=== PATIENT | female | born 1965 | race Two or more races ===

== ENCOUNTER 2018-05-03 19:55 | Emergency (ER) | payer OTHER ==
[~2018-05-03] VITALS: Ht 170.2 cm; Wt 78.0 kg
[~2018-05-03 19:55] MED LIST: CINRYZE500 UNIT; DEXILANT60 MG; METOPROLOL SUCC25 MG; SYNTHROID175 MCG
[2018-05-03] MEDS ORDERED: SKELAGESIC (20:15)
[2018-05-03] MEDS ORDERED: FLOVENT DISKUS50 MCG (20:15)
== END 2018-05-03 23:01 | disposition home or self-care (01) ==
LOC: ER 19:55
DX: H60.8X1 Other otitis externa, right ear (principal); H60.11 Cellulitis of right external ear

== ENCOUNTER 2020-07-01 06:31 | Emergency (ER) | payer OTHER ==
[~2020-07-01] VITALS: Ht 170.2 cm; Wt 136.1 kg
[~2020-07-01 06:31] MED LIST changes: +FLOVENT DISKUS50 MCG; +SKELAGESIC
[2020-07-01] MEDS ORDERED: RESTORA CAPSUL1 EACH (06:39)
[2020-07-01] MEDS ORDERED: HYOSCYAMINE0.125 M2 (06:39)
[2020-07-01] MEDS ORDERED: CIPRO250 MG/5 M (06:40)
[2020-07-01] MEDS ORDERED: ACID CONTROLLER20 MG (06:40)
[2020-07-01] MEDS ORDERED: CIPRO500 MG PO (17:57)
== END 2020-07-01 18:44 | disposition home or self-care (01) ==
LOC: ER 06:31
DX: D25.1 Intramural leiomyoma of uterus (principal); N39.0 Urinary tract infection, site not specified; R10.31 Right lower quadrant pain; R10.32 Left lower quadrant pain